=== PATIENT | female | born 1965 | race Caucasian/White ===

== ENCOUNTER 2016-10-25 12:55 | Emergency (ER) | payer SELFPAY ==
[2016-10-25] MEDS ORDERED: LORAZEPAM 2 MG/ML SOL IV ONE (12:59)
[2016-10-25 13:09] LABS: BASOPHILS % (AUTO) 1 % (0-3); EOSINOPHILS % (AUTO) 3 % (0-9); HEMATOCRIT 41 % (35-47); MEAN CORPUSCULAR HGB CONC 37.9 gm/dl (32.0-36.0); MEAN CORPUSCULAR VOLUME 87 fL (81-99); MONOCYTES % (AUTO) 5.6 % (0-12); NEUTROPHILS % (AUTO) 42.8 % (37-80)
[2016-10-25] MEDS ORDERED: LORAZEPAM 2 MG/ML SOL ONE (13:12)
[2016-10-25 13:23] VITALS: TEMP 99
[2016-10-25 13:27] VITALS: RESP 22; O2SAT 97
[2016-10-25 13:31] LABS: NORMAL RBCS PRESENT
[2016-10-25 13:34] VITALS: BP 108/70; PULSE 88
[2016-10-25 13:34] LABS: CALCIUM 8.5 mg/dl (8.5-10.1); GLOM FILT RATE 61 mL/min (>60); POTASSIUM 3.9 mMol/L (3.5-5.1); SODIUM 138 mMol/L (136-145)
== END 2016-10-25 13:50 | disposition home or self-care (01) | DRG 313 ==
LOC: ED 12:55
DX: R07.89 Other chest pain (principal)
CPT/HCPCS: 80048; 84484; 85025; 93005; 96374; 99283; 99284; J2060